=== PATIENT | male | born 1945 | race Caucasian/White ===

== ENCOUNTER 2022-05-05 13:43 | Emergency (ER) | payer MEDICARE, SELFPAY ==
--- NOTE | ~2022-05-05 | XR_ITS ---
EXAMINATION: XR FOOT, LEFT CLINICAL INFORMATION: Swelling and redness COMPARISON: None TECHNIQUE: AP, lateral, and oblique views of the left foot. FINDINGS: No fracture or dislocation. No osseous destructive change or periostitis. No talus valgus deformity. Mild first MTP joint osteoarthritis. Osteoarthritic changes at the first and second tarsometatarsal joints. Mild second MTP joint osteoarthritis. Dorsal soft tissue swelling in the forefoot. No tracking soft tissue gas. No radiodense foreign body. No ankle joint effusion. XR/XR foot LT min 3V IMPRESSION: 1. No acute osseous injury or radiographic evidence of advanced osteomyelitis. 2. Dorsal soft tissue swelling in the forefoot. No tracking soft tissue gas or radiodense foreign body. 3. Hallux valgus deformity and osteoarthritic changes as described.
--- NOTE | ~2022-05-05 | XR_ITS ---
EXAMINATION: XR CHEST CLINICAL INFORMATION: Shortness of breath COMPARISON: None TECHNIQUE: 2 views of the chest were obtained. FINDINGS: The lungs appear clear. No airspace consolidation. No pleural effusion or pneumothorax. Heart size at the upper limits normal. Slightly prominent central pulmonary vascular markings. No evidence of pulmonary edema. Left-sided pacer lead terminates in the right ventricle. No acute osseous injury. Multilevel degenerative disc disease in the thoracic spine. XR/XR chest 2V IMPRESSION: No acute pulmonary process.
--- NOTE | 2022-05-05 14:19 | ED.GENADULT ---
HPI - General Adult General Chief complaint: Extremity Problem <BRIAN Encinas - Last Filed: 05/05/22 14:24> Stated complaint: Swollen L foot, no inj, fever <BRIAN Encinas Last Filed: 05/05/22 14:24> Time Seen by Provider: 05/05/22 14:42 <BRIAN Encinas - Last Filed: 05/05/22 14:24> Source: patient <BRIAN Eriwn - Last Filed: 05/05/22 17:46> Mode of arrival: wheelchair <BRIAN Erwin Last Filed: 05/05/22 17:46> History of Present Illness HPI narrative: 77-year-old male with a past medical history of AFib on Coumadin, HTN, HLD, peripheral edema on diuretics, renal stones, diverticulitis, presenting to the ED complaining of nontraumatic left foot pain, swelling, and erythema since yesterday. Reports difficulty ambulating secondary to pain. Denies known injury/trauma or fall. Reports legs are chronically edematous, unchanged. Admits to mild SOB. Denies fever, chills, numbness/tingling, weakness, calf pain, recent travel, history of gout <BRIAN Erwin Last Filed: 05/05/22 17:46> Onset (ago): day(s) <BRIAN Erwin - Last Filed: 05/05/22 17:46> Related Data Home medications: Previous Rx's Medication Instructions Recorded cephalexin 500 mg capsule 500 mg PO QID 7 days #28 caps 05/05/22 prednisone 20 mg tablet 40 mg PO DAILY 5 days #10 tabs 05/05/22 tramadol 50 mg tablet 50 mg PO Q8H PRN pain, severe #9 05/05/22 tabs <BRIAN Encinas Last Filed: 05/05/22 14:24> Allergies/adverse reactions: Allergies Allergy/AdvReac Type Severity Reaction Status Date / Time No Known Allergies Allergy Verified 05/05/22 14:23 [No Known Allergies*] <BRIAN Encinas Last Filed: 05/05/22 14:24> Review of Systems Review of Systems: Constitutional: No Fever, No Chills, No Fatigue, No Malaise ENT/Mouth: No Hearing loss, No Ear Pain, No Nasal Congestion, No sore throat, No Rhinorrhea, No Swallowing Difficulty Eyes: No Eye Pain, No Swelling, No Redness, No Vision Changes Cardiovascular: No Chest Pain, + SOB, No Dyspnea on Exertion, No Orthopnea, + Edema (chronic), No Palpitations Respiratory: No Cough, No Sputum, No Dyspnea Gastrointestinal: No Nausea, No Vomiting, No Diarrhea, No Constipation, No Abdominal pain Genitourinary: No Dysuria, No Urinary Frequency, No Hematuria, No Flank Pain, No Urinary Flow Changes, No Hesitancy Musculoskeletal: + joint pain, No Myalgias, + Joint Swelling Skin: No Skin Lesions, No rash Neuro: No Weakness, No Numbness, No Paresthesias, No Headache <BRIAN Erwin - Last Filed: 05/05/22 17:46> Yes all other systems are reviewed and are negative <BRIAN Erwin - Last Filed: 05/05/22 17:46> Constitutional: Constitutional: Reports as per HPI <BRIAN Erwin - Last Filed: 05/05/22 17:46> [facility] Past Medical History Attestation statement: The following information was validated with the patient. <BRIAN Erwin - Last Filed: 05/05/22 17:46> Social History Social History: Social History Advance Directives: No Advance Directives Information Provided: Yes <BRIAN Encinas - Last Filed: 05/05/22 14:24> Physical Exam ED Vital Signs: Vital Signs - 24 hr 05/05/22 14:21 05/05/22 14:55 05/05/22 15:46 Temperature 97.4 F Pulse Rate 64 63 64 Respiratory Rate 16 20 16 Blood Pressure 130/66 127/74 124/72 Pulse Oximetry 94 94 94 Oxygen Delivery Method Room Air Room Air Room Air BMI result Body Mass Index 37.1 <BRIAN Encinas Last Filed: 05/05/22 14:24> Vital Signs - 24 hr 05/05/22 14:21 05/05/22 14:55 05/05/22 15:46 Temperature 97.4 F Pulse Rate 64 63 64 Respiratory Rate 16 20 16 Blood Pressure 130/66 127/74 124/72 Pulse Oximetry 94 94 94 Oxygen Delivery Method Room Air Room Air Room Air BMI result Body Mass Index 37.1 <BRIAN Erwin - Last Filed: 05/05/22 17:46> Const General: cooperative and no acute distress <BRIAN Erwin - Last Filed: 05/05/22 17:46> Orientation/consciousness: patient oriented x3 <BRIAN Erwin - Last Filed: 05/05/22 17:46> Limitations: no limitations <BRIAN Erwin - Last Filed: 05/05/22 17:46> HENMT Head: Yes normal to inspection and Yes atraumatic <BRIAN Erwin - Last Filed: 05/05/22 17:46> Ears: hearing grossly normal bilaterally <BRIAN Erwin - Last Filed: 05/05/22 17:46> General nose exam: Normal external nose present <BRIAN Erwin - Last Filed: 05/05/22 17:46> Face and sinus: Yes normal facial exam <BRIAN Erwin - Last Filed: 05/05/22 17:46> Eyes General: appearance normal, both eyes and all related structures <BRIAN Erwin - Last Filed: 05/05/22 17:46> EOM: EOMs intact bilaterally <BRIAN Erwin - Last Filed: 05/05/22 17:46> Neck Neck: Yes normal visual inspection and Yes no meningeal signs <BRIAN Erwin - Last Filed: 05/05/22 17:46> Resp Effort & Inspection: normal respiratory effort and no respiratory distress <BRIAN Erwin - Last Filed: 05/05/22 17:46> Auscultation: clear to auscultation bilaterally, no crackles, no rales, no rhonchi and no wheezes <BRIAN Erwin - Last Filed: 05/05/22 17:46> Cardio Rate: regular rate <BRIAN Erwin - Last Filed: 05/05/22 17:46> Heart sounds: S1 normal heart sound present and S2 normal heart sound present <BRIAN Erwin - Last Filed: 05/05/22 17:46> Peripheral pulses: Peripheral pulses 2+ throughout <BRIAN Erwin Last Filed: 05/05/22 17:46> GI Inspection: Yes normal to inspection <BRIAN Erwin - Last Filed: 05/05/22 17:46> Palpation (GI): Soft to palpation, nontender, no guarding and not rigid <BRIAN Erwin - Last Filed: 05/05/22 17:46> Skin Rashes: no rashes <BRIAN Erwin - Last Filed: 05/05/22 17:46> Wounds: no wounds <BRIAN Erwin Last Filed: 05/05/22 17:46> Neuro General: patient oriented x3, tone normal and no meningeal signs <BRIAN Erwin - Last Filed: 05/05/22 17:46> Gait exam (Neuro): Normal gait present <BRIAN Erwin Last Filed: 05/05/22 17:46> Extrem Other: Bilateral LE pitting edema noted. Right great toe with chronic appearing erythematous wound Left foot with noted swelling, erythema, warmth, and tenderness to palpation. Neurovascularly intact. Active ROM mild limited secondary to pain, passive ROM without tenderness. No fluctuance/induration or streaking. <BRIAN Erwin - Last Filed: 05/05/22 17:46> Course Course Course Narrative: 14: RME 77 yo male with history of afib on Coumadin, HTN, HLD,, LE edema on a water pill, kidney stones, diverticulitis who presents to the ER for evaluation of nontraumtic left foot pain, swelling, redness that started yesterday, acutely worsened overnight and had a low grade fever. Hx pre-DM. No hx cellulitis in the past, no hx gout. Left foot is swollen, red and warm, no exquisite tenderness with ROM. Will check XR, labs, cultures, inflammatory markers. <BRIAN Encinas - Last Filed: 05/05/22 14:24> 14:19 RME 77 yo male with history of afib on Coumadin, HTN, HLD,, LE edema on a water pill, kidney stones, diverticulitis who presents to the ER for evaluation of nontraumtic left foot pain, swelling, redness that started yesterday, acutely worsened overnight and had a low grade fever. Hx pre-DM. No hx cellulitis in the past, no hx gout. Left foot is swollen, red and warm, no exquisite tenderness with ROM. Will check XR, labs, cultures, inflammatory markers. -[id number]--noted leukocytosis of 16. ESR elevated to 28. Lactic acid negative. Bilirubin is chronically elevated. CRP 14.0. -BNP 187 Low suspicion for severe sepsis XR foot LT min 3V IMPRESSION: 1.? No acute osseous injury or radiographic evidence of advanced osteomyelitis. 2.? Dorsal soft tissue swelling in the forefoot. No tracking soft tissue gas or radiodense foreign body. 3.? Hallux valgus deformity and osteoarthritic changes as described. XR chest 2V IMPRESSION: No acute pulmonary process. -potential admission discussed with patient and spouse at bedside however would like to be discharged home. Case discussed with Dr. Albert who also evaluated patient and is in agreement with plan that this is likely cellulitis and patient can be discharged home. Patient given 1st dose of prednisone and Keflex in the ED -UA with RBCs and blood, not infected Results discussed with patient including worrisome signs and symptoms and strict return precautions, and when to return to the emergency department. They verbalized understanding and feel safe for discharge at this time. <BRIAN Erwin - Last Filed: 05/05/22 17:46> Medications Administered Discontinued Medications Generic Name Dose Route Start Last Admin Trade Name Freq PRN Reason Stop Dose Admin Morphine Sulfate 15 mg 05/05/22 15:27 05/05/22 15:37 Morphine Sulfate Immed Release 15 Mg Tablet PO 05/05/22 15:28 Not Given ONCE ONE <BRIAN Encinas - Last Filed: 05/05/22 14:24> Medications Administered Discontinued Medications Generic Name Dose Route Start Last Admin Trade Name Freq PRN Reason Stop Dose Admin Morphine Sulfate 15 mg 05/05/22 15:27 05/05/22 15:37 Morphine Sulfate Immed Release 15 Mg Tablet PO 05/05/22 15:28 Not Given ONCE ONE <BRIAN Erwin - Last Filed: 05/05/22 17:46> Medical Decision Making Medical Decision Making MDM Narrative: 77-year-old male with a past medical history of AFib on Coumadin, HTN, HLD, peripheral edema on diuretics, renal stones, diverticulitis, presenting to the ED complaining of nontraumatic left foot pain, swelling, and erythema since yesterday. On exam vital signs stable, NAD, nontoxic appearing, physical exam as noted above. Concern for gout vs cellulitis vs worsening peripheral edema/CHF. Low suspicion for DVT is patient is anticoagulated. Compartments soft, low suspicion for compartment syndrome. Unlikely septic joint/arthritis has no pain with passive ROM. Low suspicion for osteomyelitis Plan: Labs, CXR, pain management, re-evaluate <BRIAN Erwin - Last Filed: 05/05/22 17:46> Differential Diagnosis Differential Diagnoses: The differential diagnosis associated with the presentation includes <BRIAN Erwin - Last Filed: 05/05/22 17:46> As above <BRIAN Erwin - Last Filed: 05/05/22 17:46> Admission/Observation Consideration of admission/observation: Escalation of care including admission/observation considered <BRIAN Erwin - Last Filed: 05/05/22 17:46> Lab Data [facility] Lab Attestation statement: I reviewed the patient's lab results. <BRIAN Erwin - Last Filed: 05/05/22 17:46> Result Diagrams: : 05/05/22 14:40 05/05/22 14:40 <BRIAN Encinas - Last Filed: 05/05/22 14:24> Labs: Lab Results 05/05/22 05/05/22 05/05/22 Range/Units 14:40 14:40 14:40 WBC 16.0 H (4.8-10.8) X10*3/uL RBC 4.66 (4.60-5.80) X10*6/uL Hgb 13.5 L (14.0-18.0) g/dl Hct 41.0 L (42.0-52.0) % MCV 88.0 (80.0-98.0) fL MCH 29.0 (27.0-33.0) pg MCHC 32.9 (31.0-36.0) g/dl RDW 15.6 (11.0-16.0) % Plt Count 290 (160-400) X10*3/uL MPV 10.3 (9.4-12.4) fL Immature Gran % (Auto) 0.7 H (0.0-0.4) % Neut % (Auto) 78.8 H (45-73) % Lymph % (Auto) 6.3 L (20-40) % [place] % (Auto) 13.6 H (2-11) % Eos % (Auto) 0.3 (0-4) % Baso % (Auto) 0.3 (0-2) % Lymph # (Auto) 1.0 L (1.2-4.9) X10*3/uL [place] # (Auto) 2.2 H (0.1-1.2) X10*3/uL Eos # (Auto) 0.1 (0.0-0.4) X10*3/uL Baso # (Auto) 0.1 (0.0-0.2) X10*3/uL Abs Immat Gran (auto) 0.11 H (0.00-0.03) X10*3/uL Absolute Neuts (auto) 12.6 H (2.0-8.3) x10*3/uL Absolute Nucleated RBC 0.000 (0.0-0.012) X10*3/uL Nucleated RBC % (auto) 0.0 (0.0-0.2) /100WBC Smear Tech's Comments VERIFIED ESR 28 H (0-15) MM/HR PT (10.0-13.1) SEC INR (0.9-1.1) APTT (26.0-36.4) SEC Sodium 137 (135-145) mmol/L Potassium 4.1 (3.3-5.1) mmol/L Chloride 104 (96-108) mmol/L Carbon Dioxide 22 (22-29) mmol/L Anion Gap 15 (12-20) BUN 14 (9-16) mg/dL Creatinine 0.91 (0.5-1.4) mg/dL Estim Creat Clear Calc 76.9 Estimated GFR > 60 Random Glucose 114 (60-115) mg/dL Lactic Acid (0.5-2.0) mmol/L Calcium 9.8 (8.4-10.2) mg/dL Magnesium 1.8 (1.6-2.6) mg/dL Total Bilirubin 2.0 H (0.0-1.0) mg/dL Direct Bilirubin 0.7 H (0.0-0.5) mg/dL AST 16 (5-37) U/L ALT 9 (0-40) U/L Alkaline Phosphatase 90 (39-117) U/L C-Reactive Protein 14.09 H (< or = 0.50) mg/dL B-Natriuretic Peptide (<100) pg/mL Total Protein 7.4 (6.5-8.0) g/dL Albumin 4.0 (3.5-5.0) g/dL Urine Color Urine Appearance Urine pH (5.0-9.0) Ur Specific [place] (1.005-1.025) Urine Protein (Neg-Trace) mg/dL Urine Glucose (UA) (Negative) mg/dL Urine Ketones (Negative) mg/dL Urine Blood (Negative) Urine Nitrite (Negative) Ur Leukocyte Esterase (Negative) Urine RBC (0-2) /HPF Urine WBC (0-5) /HPF Ur Squamous Epith Cells (0-2) /HPF Urine Bacteria (None Seen) Hyaline Casts (0-2) /LPF Influenza Type A (PCR) (Negative) Influenza Type B (PCR) (Negative) RSV RNA Qual (PCR) (Negative) SARS-CoV-2 RNA (RT-PCR) (Negative) 05/05/22 05/05/22 05/05/22 Range/Units 14:40 14:40 14:40 WBC (4.8-10.8) X10*3/uL RBC (4.60-5.80) X10*6/uL Hgb (14.0-18.0) g/dl Hct (42.0-52.0) % MCV (80.0-98.0) fL MCH (27.0-33.0) pg MCHC (31.0-36.0) g/dl RDW (11.0-16.0) % Plt Count (160-400) X10*3/uL MPV (9.4-12.4) fL Immature Gran % (Auto) (0.0-0.4) % Neut % (Auto) (45-73) % Lymph % (Auto) (20-40) % [place] % (Auto) (2-11) % Eos % (Auto) (0-4) % Baso % (Auto) (0-2) % Lymph # (Auto) (1.2-4.9) X10*3/uL [place] # (Auto) (0.1-1.2) X10*3/uL Eos # (Auto) (0.0-0.4) X10*3/uL Baso # (Auto) (0.0-0.2) X10*3/uL Abs Immat Gran (auto) (0.00-0.03) X10*3/uL Absolute Neuts (auto) (2.0-8.3) x10*3/uL Absolute Nucleated RBC (0.0-0.012) X10*3/uL Nucleated RBC % (auto) (0.0-0.2) /100WBC Smear Tech's Comments ESR (0-15) MM/HR PT 30.1 H (10.0-13.1) SEC INR 2.5 H (0.9-1.1) APTT 41.9 H (26.0-36.4) SEC Sodium (135-145) mmol/L Potassium (3.3-5.1) mmol/L Chloride (96-108) mmol/L Carbon Dioxide (22-29) mmol/L Anion Gap (12-20) BUN (9-16) mg/dL Creatinine (0.5-1.4) mg/dL Estim Creat Clear Calc Estimated GFR Random Glucose (60-115) mg/dL Lactic Acid 0.9 (0.5-2.0) mmol/L Calcium (8.4-10.2) mg/dL Magnesium (1.6-2.6) mg/dL Total Bilirubin (0.0-1.0) mg/dL Direct Bilirubin (0.0-0.5) mg/dL AST (5-37) U/L ALT (0-40) U/L Alkaline Phosphatase (39-117) U/L C-Reactive Protein (< or = 0.50) mg/dL B-Natriuretic Peptide 187 H (<100) pg/mL Total Protein (6.5-8.0) g/dL Albumin (3.5-5.0) g/dL Urine Color Urine Appearance Urine pH (5.0-9.0) Ur Specific [place] (1.005-1.025) Urine Protein (Neg-Trace) mg/dL Urine Glucose (UA) (Negative) mg/dL Urine Ketones (Negative) mg/dL Urine Blood (Negative) Urine Nitrite (Negative) Ur Leukocyte Esterase (Negative) Urine RBC (0-2) /HPF Urine WBC (0-5) /HPF Ur Squamous Epith Cells (0-2) /HPF Urine Bacteria (None Seen) Hyaline Casts (0-2) /LPF Influenza Type A (PCR) (Negative) Influenza Type B (PCR) (Negative) RSV RNA Qual (PCR) (Negative) SARS-CoV-2 RNA (RT-PCR) (Negative) 05/05/22 05/05/22 Range/Units 14:40 16:35 WBC (4.8-10.8) X10*3/uL RBC (4.60-5.80) X10*6/uL Hgb (14.0-18.0) g/dl Hct (42.0-52.0) % MCV (80.0-98.0) fL MCH (27.0-33.0) pg MCHC (31.0-36.0) g/dl RDW (11.0-16.0) % Plt Count (160-400) X10*3/uL MPV (9.4-12.4) fL Immature Gran % (Auto) (0.0-0.4) % Neut % (Auto) (45-73) % Lymph % (Auto) (20-40) % [place] % (Auto) (2-11) % Eos % (Auto) (0-4) % Baso % (Auto) (0-2) % Lymph # (Auto) (1.2-4.9) X10*3/uL [place] # (Auto) (0.1-1.2) X10*3/uL Eos # (Auto) (0.0-0.4) X10*3/uL Baso # (Auto) (0.0-0.2) X10*3/uL Abs Immat Gran (auto) (0.00-0.03) X10*3/uL Absolute Neuts (auto) (2.0-8.3) x10*3/uL Absolute Nucleated RBC (0.0-0.012) X10*3/uL Nucleated RBC % (auto) (0.0-0.2) /100WBC Smear Tech's Comments ESR (0-15) MM/HR PT (10.0-13.1) SEC INR (0.9-1.1) APTT (26.0-36.4) SEC Sodium (135-145) mmol/L Potassium (3.3-5.1) mmol/L Chloride (96-108) mmol/L Carbon Dioxide (22-29) mmol/L Anion Gap (12-20) BUN (9-16) mg/dL Creatinine (0.5-1.4) mg/dL Estim Creat Clear Calc Estimated GFR Random Glucose (60-115) mg/dL Lactic Acid (0.5-2.0) mmol/L Calcium (8.4-10.2) mg/dL Magnesium (1.6-2.6) mg/dL Total Bilirubin (0.0-1.0) mg/dL Direct Bilirubin (0.0-0.5) mg/dL AST (5-37) U/L ALT (0-40) U/L Alkaline Phosphatase (39-117) U/L C-Reactive Protein (< or = 0.50) mg/dL B-Natriuretic Peptide (<100) pg/mL Total Protein (6.5-8.0) g/dL Albumin (3.5-5.0) g/dL Urine Color Dark Yellow Urine Appearance Clear Urine pH 5.0 (5.0-9.0) Ur Specific [place] 1.020 (1.005-1.025) Urine Protein 30 (1+) H (Neg-Trace) mg/dL Urine Glucose (UA) Negative (Negative) mg/dL Urine Ketones Negative (Negative) mg/dL Urine Blood Moderate (2+) H (Negative) Urine Nitrite Negative (Negative) Ur Leukocyte Esterase Negative (Negative) Urine RBC 3-5 H (0-2) /HPF Urine WBC 0-5 (0-5) /HPF Ur Squamous Epith Cells 0-2 (0-2) /HPF Urine Bacteria None Seen (None Seen) Hyaline Casts 3-5 (0-2) /LPF Influenza Type A (PCR) NEGATIVE (Negative) Influenza Type B (PCR) NEGATIVE (Negative) RSV RNA Qual (PCR) NEGATIVE (Negative) SARS-CoV-2 RNA (RT-PCR) NEGATIVE (Negative) <BRIAN Encinas - Last Filed: 05/05/22 14:24> Lab Results 05/05/22 05/05/22 05/05/22 Range/Units 14:40 14:40 14:40 WBC 16.0 H (4.8-10.8) X10*3/uL RBC 4.66 (4.60-5.80) X10*6/uL Hgb 13.5 L (14.0-18.0) g/dl Hct 41.0 L (42.0-52.0) % MCV 88.0 (80.0-98.0) fL MCH 29.0 (27.0-33.0) pg MCHC 32.9 (31.0-36.0) g/dl RDW 15.6 (11.0-16.0) % Plt Count 290 (160-400) X10*3/uL MPV 10.3 (9.4-12.4) fL Immature Gran % (Auto) 0.7 H (0.0-0.4) % Neut % (Auto) 78.8 H (45-73) % Lymph % (Auto) 6.3 L (20-40) % [place] % (Auto) 13.6 H (2-11) % Eos % (Auto) 0.3 (0-4) % Baso % (Auto) 0.3 (0-2) % Lymph # (Auto) 1.0 L (1.2-4.9) X10*3/uL [place] # (Auto) 2.2 H (0.1-1.2) X10*3/uL Eos # (Auto) 0.1 (0.0-0.4) X10*3/uL Baso # (Auto) 0.1 (0.0-0.2) X10*3/uL Abs Immat Gran (auto) 0.11 H (0.00-0.03) X10*3/uL Absolute Neuts (auto) 12.6 H (2.0-8.3) x10*3/uL Absolute Nucleated RBC 0.000 (0.0-0.012) X10*3/uL Nucleated RBC % (auto) 0.0 (0.0-0.2) /100WBC Smear Tech's Comments VERIFIED ESR 28 H (0-15) MM/HR PT (10.0-13.1) SEC INR (0.9-1.1) APTT (26.0-36.4) SEC Sodium 137 (135-145) mmol/L Potassium 4.1 (3.3-5.1) mmol/L Chloride 104 (96-108) mmol/L Carbon Dioxide 22 (22-29) mmol/L Anion Gap 15 (12-20) BUN 14 (9-16) mg/dL Creatinine 0.91 (0.5-1.4) mg/dL Estim Creat Clear Calc 76.9 Estimated GFR > 60 Random Glucose 114 (60-115) mg/dL Lactic Acid (0.5-2.0) mmol/L Calcium 9.8 (8.4-10.2) mg/dL Magnesium 1.8 (1.6-2.6) mg/dL Total Bilirubin 2.0 H (0.0-1.0) mg/dL Direct Bilirubin 0.7 H (0.0-0.5) mg/dL AST 16 (5-37) U/L ALT 9 (0-40) U/L Alkaline Phosphatase 90 (39-117) U/L C-Reactive Protein 14.09 H (< or = 0.50) mg/dL B-Natriuretic Peptide (<100) pg/mL Total Protein 7.4 (6.5-8.0) g/dL Albumin 4.0 (3.5-5.0) g/dL Urine Color Urine Appearance Urine pH (5.0-9.0) Ur Specific [place] (1.005-1.025) Urine Protein (Neg-Trace) mg/dL Urine Glucose (UA) (Negative) mg/dL Urine Ketones (Negative) mg/dL Urine Blood (Negative) Urine Nitrite (Negative) Ur Leukocyte Esterase (Negative) Urine RBC (0-2) /HPF Urine WBC (0-5) /HPF Ur Squamous Epith Cells (0-2) /HPF Urine Bacteria (None Seen) Hyaline Casts (0-2) /LPF Influenza Type A (PCR) (Negative) Influenza Type B (PCR) (Negative) RSV RNA Qual (PCR) (Negative) SARS-CoV-2 RNA (RT-PCR) (Negative) 05/05/22 05/05/22 05/05/22 Range/Units 14:40 14:40 14:40 WBC (4.8-10.8) X10*3/uL RBC (4.60-5.80) X10*6/uL Hgb (14.0-18.0) g/dl Hct (42.0-52.0) % MCV (80.0-98.0) fL MCH (27.0-33.0) pg MCHC (31.0-36.0) g/dl RDW (11.0-16.0) % Plt Count (160-400) X10*3/uL MPV (9.4-12.4) fL Immature Gran % (Auto) (0.0-0.4) % Neut % (Auto) (45-73) % Lymph % (Auto) (20-40) % [place] % (Auto) (2-11) % Eos % (Auto) (0-4) % Baso % (Auto) (0-2) % Lymph # (Auto) (1.2-4.9) X10*3/uL [place] # (Auto) (0.1-1.2) X10*3/uL Eos # (Auto) (0.0-0.4) X10*3/uL Baso # (Auto) (0.0-0.2) X10*3/uL Abs Immat Gran (auto) (0.00-0.03) X10*3/uL Absolute Neuts (auto) (2.0-8.3) x10*3/uL Absolute Nucleated RBC (0.0-0.012) X10*3/uL Nucleated RBC % (auto) (0.0-0.2) /100WBC Smear Tech's Comments ESR (0-15) MM/HR PT 30.1 H (10.0-13.1) SEC INR 2.5 H (0.9-1.1) APTT 41.9 H (26.0-36.4) SEC Sodium (135-145) mmol/L Potassium (3.3-5.1) mmol/L Chloride (96-108) mmol/L Carbon Dioxide (22-29) mmol/L Anion Gap (12-20) BUN (9-16) mg/dL Creatinine (0.5-1.4) mg/dL Estim Creat Clear Calc Estimated GFR Random Glucose (60-115) mg/dL Lactic Acid 0.9 (0.5-2.0) mmol/L Calcium (8.4-10.2) mg/dL Magnesium (1.6-2.6) mg/dL Total Bilirubin (0.0-1.0) mg/dL Direct Bilirubin (0.0-0.5) mg/dL AST (5-37) U/L ALT (0-40) U/L Alkaline Phosphatase (39-117) U/L C-Reactive Protein (< or = 0.50) mg/dL B-Natriuretic Peptide 187 H (<100) pg/mL Total Protein (6.5-8.0) g/dL Albumin (3.5-5.0) g/dL Urine Color Urine Appearance Urine pH (5.0-9.0) Ur Specific [place] (1.005-1.025) Urine Protein (Neg-Trace) mg/dL Urine Glucose (UA) (Negative) mg/dL Urine Ketones (Negative) mg/dL Urine Blood (Negative) Urine Nitrite (Negative) Ur Leukocyte Esterase (Negative) Urine RBC (0-2) /HPF Urine WBC (0-5) /HPF Ur Squamous Epith Cells (0-2) /HPF Urine Bacteria (None Seen) Hyaline Casts (0-2) /LPF Influenza Type A (PCR) (Negative) Influenza Type B (PCR) (Negative) RSV RNA Qual (PCR) (Negative) SARS-CoV-2 RNA (RT-PCR) (Negative) 05/05/22 05/05/22 Range/Units 14:40 16:35 WBC (4.8-10.8) X10*3/uL RBC (4.60-5.80) X10*6/uL Hgb (14.0-18.0) g/dl Hct (42.0-52.0) % MCV (80.0-98.0) fL MCH (27.0-33.0) pg MCHC (31.0-36.0) g/dl RDW (11.0-16.0) % Plt Count (160-400) X10*3/uL MPV (9.4-12.4) fL Immature Gran % (Auto) (0.0-0.4) % Neut % (Auto) (45-73) % Lymph % (Auto) (20-40) % [place] % (Auto) (2-11) % Eos % (Auto) (0-4) % Baso % (Auto) (0-2) % Lymph # (Auto) (1.2-4.9) X10*3/uL [place] # (Auto) (0.1-1.2) X10*3/uL Eos # (Auto) (0.0-0.4) X10*3/uL Baso # (Auto) (0.0-0.2) X10*3/uL Abs Immat Gran (auto) (0.00-0.03) X10*3/uL Absolute Neuts (auto) (2.0-8.3) x10*3/uL Absolute Nucleated RBC (0.0-0.012) X10*3/uL Nucleated RBC % (auto) (0.0-0.2) /100WBC Smear Tech's Comments ESR (0-15) MM/HR PT (10.0-13.1) SEC INR (0.9-1.1) APTT (26.0-36.4) SEC Sodium (135-145) mmol/L Potassium (3.3-5.1) mmol/L Chloride (96-108) mmol/L Carbon Dioxide (22-29) mmol/L Anion Gap (12-20) BUN (9-16) mg/dL Creatinine (0.5-1.4) mg/dL Estim Creat Clear Calc Estimated GFR Random Glucose (60-115) mg/dL Lactic Acid (0.5-2.0) mmol/L Calcium (8.4-10.2) mg/dL Magnesium (1.6-2.6) mg/dL Total Bilirubin (0.0-1.0) mg/dL Direct Bilirubin (0.0-0.5) mg/dL AST (5-37) U/L ALT (0-40) U/L Alkaline Phosphatase (39-117) U/L C-Reactive Protein (< or = 0.50) mg/dL B-Natriuretic Peptide (<100) pg/mL Total Protein (6.5-8.0) g/dL Albumin (3.5-5.0) g/dL Urine Color Dark Yellow Urine Appearance Clear Urine pH 5.0 (5.0-9.0) Ur Specific [place] 1.020 (1.005-1.025) Urine Protein 30 (1+) H (Neg-Trace) mg/dL Urine Glucose (UA) Negative (Negative) mg/dL Urine Ketones Negative (Negative) mg/dL Urine Blood Moderate (2+) H (Negative) Urine Nitrite Negative (Negative) Ur Leukocyte Esterase Negative (Negative) Urine RBC 3-5 H (0-2) /HPF Urine WBC 0-5 (0-5) /HPF Ur Squamous Epith Cells 0-2 (0-2) /HPF Urine Bacteria None Seen (None Seen) Hyaline Casts 3-5 (0-2) /LPF Influenza Type A (PCR) NEGATIVE (Negative) Influenza Type B (PCR) NEGATIVE (Negative) RSV RNA Qual (PCR) NEGATIVE (Negative) SARS-CoV-2 RNA (RT-PCR) NEGATIVE (Negative) <BRIAN Erwin - Last Filed: 05/05/22 17:46> Radiology Impression Discussion of test interpretation with radiology: I have reviewed the radiologist's reading. <BRIAN Erwin - Last Filed: 05/05/22 17:46> Independent Historian Clinical information obtained from an independent historian. History obtained from or confirmed by: Spouse <BRIAN Erwin - Last Filed: 05/05/22 17:46> Prescription Management I considered prescription management with: Pain Medication <BRIAN Erwin Last Filed: 05/05/22 17:46> Discharge Plan Discharge Clinical Impression: Cellulitis, Gout <BRIAN Encinas - Last Filed: 05/05/22 14:24> Patient Disposition: Home, Self-Care <BRIAN Encinas - Last Filed: 05/05/22 14:24> Instructions: Cellulitis (ED), Low Purine Diet (ED), Gout (ED) <BRIAN Encinas - Last Filed: 05/05/22 14:24> Additional Instructions: You have cellulitis, skin infection, you could also have something called gout. Keflex as an antibiotic please take as prescribed. Prednisone as a steroid which will help swelling/pain. Take Tylenol for pain. Tramadol as opiate pain medication, take only when pain is severe for the next 3 days Please be re-evaluated in 2-3 days prior primary care doctor. If symptoms persist or worsen, swelling worsens, you fever, worsening redness, you are unable to walk, or shortness of breath return to the emergency department <BRIAN Encinas - Last Filed: 05/05/22 14:24> Prescriptions: New prednisone 20 mg tablet 40 mg PO DAILY 5 Days Qty: 10 0RF cephalexin 500 mg capsule 500 mg PO QID 7 Days Qty: 28 0RF tramadol 50 mg tablet 50 mg PO Q8H PRN (Reason: pain, severe) Qty: 9 0RF <BRIAN Encinas - Last Filed: 05/05/22 14:24> Referrals: Keyana Francis DO [Primary Care Provider] - 2 days <BRIAN Encinas - Last Filed: 05/05/22 14:24>
[2022-05-05 14:21] VITALS: BP 130/66; PULSE 64; RESP 16; O2SAT 94; BMI 37.1
[2022-05-05 14:50] LABS: Basophils Absolute Auto 0.1 X10*3/uL (0.0-0.2); Basophils Percent Auto 0.3 % (0-2); Eosinophils Absolute Auto 0.1 X10*3/uL (0.0-0.4); Eosinophils Percent Auto 0.3 % (0-4); Hemoglobin 13.5 g/dl (14.0-18.0); Imm Gran Abs Auto 0.11 X10*3/uL (0.00-0.03); Imm Gran Pct Auto 0.7 % (0.0-0.4); Lymphocytes Percent Auto 6.3 % (20-40); MANUAL DIFF FLAG SCAN; Mean Corpuscular HGB Conc 32.9 g/dl (31.0-36.0); Mean Platelet Volume 10.3 fL (9.4-12.4); Monocytes Absolute Auto 2.2 X10*3/uL (0.1-1.2); Monocytes Percent Auto 13.6 % (2-11); Neutrophils Absolute Auto 12.6 x10*3/uL (2.0-8.3); Neutrophils Percent Auto 78.8 % (45-73); Platelet Count 290 X10*3/uL (160-400); Red Blood Count 4.66 X10*6/uL (4.60-5.80); Red Cell Distribution Width 15.6 % (11.0-16.0); SCAN SMEAR FLAG 1
[2022-05-05 14:55] VITALS: BP 127/74; PULSE 63; RESP 20; O2SAT 94
[2022-05-05 14:56] LABS: INTERNATIONAL NORM RATIO 2.5 (0.9-1.1); Prothrombin Time 30.1 SEC (10.0-13.1)
[2022-05-05 14:58] LABS: Partial Thromboplastin Time 41.9 SEC (26.0-36.4)
[2022-05-05 15:10] LABS: SLIDE REVIEW VERIFIED
[2022-05-05 15:26] LABS: Lactic Acid 0.9 mmol/L (0.5-2.0)
[2022-05-05 15:36] LABS: B Type Natriuretic Peptide 187 pg/mL (<100)
[2022-05-05 15:41] LABS: Alanine Aminotransferase 9 U/L (0-40); Alkaline Phosphatase 90 U/L (39-117); Anion Gap 15 (12-20); Aspartate Amino Transferase 16 U/L (5-37); Bilirubin Direct 0.7 mg/dL (0.0-0.5); Blood Urea Nitrogen 14 mg/dL (9-16); C Reactive Protein 14.09 mg/dL (< or = 0.50); Calcium 9.8 mg/dL (8.4-10.2); Carbon Dioxide 22 mmol/L (22-29); Chloride 104 mmol/L (96-108); Creatinine Clr Calc Pharmacy 76.9; Estimated Glomerular Filt Rate > 60; Glucose Random 114 mg/dL (60-115); Magnesium 1.8 mg/dL (1.6-2.6); Potassium 4.1 mmol/L (3.3-5.1); Sodium 137 mmol/L (135-145); Total Protein 7.4 g/dL (6.5-8.0)
[2022-05-05 15:42] LABS: Influenza A PCR NEGATIVE (Negative); Influenza B PCR NEGATIVE (Negative); Resp Syncy Virus RNA Qual PCR NEGATIVE (Negative); SARS COV2 PCR INHOUSE NEGATIVE (Negative)
[2022-05-05 15:46] VITALS: BP 124/72; PULSE 64; RESP 16; TEMP 36.3; O2SAT 94
[2022-05-05 15:46] LABS: Erythrocyte Sedimentation Rate 28 MM/HR (0-15)
[2022-05-05 16:49] LABS: Appearance Urine Clear; Color Urine Dark Yellow; Glucose Urine UA Negative (Negative); Leukocyte Esterase Urine Negative (Negative); Nitrite Urine Negative (Negative); UMIC TRIGGER UACC YES; Urine Blood Moderate (2+) (Negative); Urine Ketones Negative (Negative); Urine Protein 30 (1+) mg/dL (Neg-Trace)
[2022-05-05 16:57] LABS: Bacteria Urine None Seen (None Seen); Squamous Epithelial Cell Urine 0-2 /HPF (0-2); WBC Urine 0-5 /HPF (0-5)
[2022-05-05] MEDS: cephALEXin 500 MG CAPSULE PO (18:02)
[2022-05-05] MEDS: predniSONE 20 MG TABLET 40 MG PO (18:02)
== END 2022-05-05 18:08 | disposition home or self-care (01) ==
PROVIDERS: Physician Assistant; Emergency Provider Emergency Medicine; PCP Internal Medicine
DX: M10.072 Idiopathic gout, left ankle and foot (principal); R60.0 Localized edema; L03.116 Cellulitis of left lower limb; R06.02 Shortness of breath; R07.89 Other chest pain; Z20.822 Contact with and (suspected) exposure to COVID-19; Z79.899 Other long term (current) drug therapy
CPT/HCPCS: 0241U; 36415; 71046; 73630; 80048; 80076; 81001; 83605; 83735; 83880; 85025; 85610; 85652; 85730; 86140; 87040; 99283